=== PATIENT | female | born 1950 | race Caucasian/White ===

== ENCOUNTER 2020-05-21 11:08 | Emergency (ER) | payer OTHER, SELFPAY ==
--- NOTE | 2020-05-21 11:17 | XRR_ITS ---
PROCEDURE INFORMATION: Exam: XR Left Foot Complete Exam date and time: 05/21/2020 11:53 AM Age: 69 years old Clinical indication: Pain and injury or trauma; Fall; Initial encounter; Blunt trauma; Foot; Left; Injury date: 05/20/20; Injury details: Fell off window ledge; Additional info: Pain. Lateral left foot pain TECHNIQUE: Imaging protocol: XR Left foot. Views: 3 or more views. COMPARISON: No relevant prior studies available. FINDINGS: Bones/joints: Hindfoot-midfoot and midfoot-forefoot articulations normal. Metatarsals and phalanges without an acute process. Subtalar and tibiotalar joint normal. Mild degenerative changes at the first metatarsal phalangeal joint. Mild soft tissue swelling about the joint space medially. Soft tissues: See Bones/joints finding. XR/XR foot LT min 3V* [id number] IMPRESSION: No visualized fracture
[2020-05-21 11:39] VITALS: BP 115/73; PULSE 70; RESP 18; TEMP 36.7; O2SAT 100; BMI 19.9
--- NOTE | 2020-05-21 11:54 | W.ED.FALL ---
HPI - Fall General: Chief Complaint: Fall Stated Complaint: left foot pain Time Seen by Provider: 05/21/20 11:37 History of Present Illness: HPI Narrative: States she fell off a ledge or tingling on her left foot and has pain now to the left forefoot that is hard to bear weight on it. complaint: fall Onset (ago): day(s) Fall from: from height (distance) (2 foot) Fall witnessed: no Place fall occurred: home Loss of consciousness: None Symptoms prior to fall: none Context: tripped/slipped Severity: mild Severity scale (1-10): 2 Associated symptoms-after fall: Reports no associated symptoms; Denies abdominal pain, chest pain or headache(s) Review of Systems Const: Denies: fever(s), chills or body aches Eyes: Denies: change in vision or blurry vision ENMT: Denies: throat pain or nasal congestion Card: Denies: chest pain or dyspnea on exertion Resp: Denies: dyspnea, productive cough or non-productive cough GI: Denies: abdominal pain, nausea or vomiting Musc: Reports: extremity pain (Left forefoot) Skin/Breast: Denies: rash Neuro: Denies: headache(s) Psych: Denies: anxiety or depression Contreras/Lymph: Denies: easy bruising Physical Exam Const: COMMON NORMALS: no acute distress Extremity: LEFT LOWER EXTREMITY: Yes foot & digits (Left foot is tender does have some bruising no swelling.) Course Vital Signs: Vital signs: Vital Signs Temperature 98.1 F 05/21/20 11:39 Pulse Rate 70 05/21/20 11:39 Respiratory Rate 18 05/21/20 11:39 Blood Pressure 115/73 05/21/20 11:39 Pulse Oximetry 100 05/21/20 11:39 Discharge Plan Discharge Patient Disposition: Home Clinical Impression: Sprain of foot, left Qualifiers: Encounter type: initial encounter Qualified Code(s): S93.602A - Unspecified sprain of left foot, initial encounter Condition: Stable Discharge Orders: Discharge Order (Routine); Ordered 05/21/20 Ordered By: Salomon Birch Discharge Diet: Usual diet Discharge Activity: Increase activity as tolerated Patient Instructions: Foot Sprain (ED) Activity Restrictions/Additional Instructions: Ice to the area. Can take Tylenol or ibuprofen for pain. Try to do much activity as possible if no significant provement follow-up your family medical provider. Coding Level of Care Code ED Sheet [facility] for Chg Fwd Exam Expanded Problem Focused
[2020-05-21 12:38] VITALS: BP 115/73; PULSE 87; RESP 18; O2SAT 98
== END 2020-05-21 12:39 | disposition home or self-care (01) ==
LOC: ER 12:52
PROVIDERS: Emergency Provider Nurse Practitioner Family
DX: S93.602A Unspecified sprain of left foot, initial encounter (principal); W17.89XA Other fall from one level to another, initial encounter
CPT/HCPCS: 12345; 73630; 99281; 99282

== ENCOUNTER → 2020-06-12 11:47 | Outpatient (BNVA) | payer OTHER, SELFPAY | PROVIDERS: Visit Provider Emergency Medicine | DX: Z11.59 Encounter for screening for other viral diseases (principal) | CPT/HCPCS: 87635 ==

== ENCOUNTER 2022-11-16 08:59 | Outpatient (CLI) | payer OTHER, SELFPAY ==
--- NOTE | 2022-11-16 10:00 | USCV_ITS ---
DevorahEusebia aguilar Age: 72 Gender: F : 1950 Exam Date: 11/16/2022 09:34 Ordering Phys: Kar Piper M.D ([email or web address]) Technologist: Cherry Mays Exam Location: [facility] Indication: SOB Chest Pain BP: 140 / 80 HR: 68 Rhythm: Sinus Technical Quality: Adequate MEASUREMENTS (Male / Female) Normal Values 2D ECHO LV Diastolic Diameter PLAX 3.4 cm 4.2 - 5.9 / 3.9 - 5.3 cm LV Systolic Diameter PLAX 1.8 cm LV Chamber Size 3.0 cm IVS Diastolic Thickness 0.8 cm 0.6 - 1.0 / 0.6 - 0.9 cm IVS Systolic Thickness 1.1 cm LVPW Diastolic Thickness 0.8 cm 0.6 - 1.0 / 0.6 - 0.9 cm LVPW Systolic Thickness 1.5 cm RV Chamber Size 2.0 cm LVOT Diameter 2.0 cm LV Ejection Fraction 2D Teich 80.2 % LV Ejection Fraction MOD 2C 73.0 % LV Ejection Fraction 2C AL 76.6 % LA Diameter 2.7 cm LA Width 2.7 cm LA Height 3.3 cm RA Width 2.4 cm RA Height 3.4 cm Aorta at Sinotubular Diameter 2.3 cm IVC Diameter 1.6 cm M-MODE Aortic Annulus Diameter 2.4 cm LA Ao Ratio MM 1.4 MV E Point Septal Separation 0.6 cm DOPPLER AV Peak Velocity 133.0 cm/s LVOT Peak Velocity 103.0 cm/s AV Area Cont Eq vti 2.0 cm squared AV Area Cont Eq pk 2.5 cm squared MV Peak Velocity 141.0 cm/s MV Area PHT 3.9 cm squared Mitral E to A Ratio 0.7 MV E' Velocity 48.0 cm/s Mitral E to MV E' Ratio 7.5 Mitral E to LV E' Lateral Ratio 6.9 Mitral E to LV E' Septal Ratio 8.4 TR Peak Velocity 132.1 cm/s TR Peak Gradient 7.0 mmHg TR Mean Velocity 97.2 cm/s TR Mean Gradient 4.3 mmHg TR Velocity Time Integral 34.4 cm TV Peak E Velocity 61.0 cm/s Right Atrial Pressure 3.0 mmHg Pulmonary Artery Systolic Pressu 10.0 mmHg RV Acceleration Time 0.2 s RV Ejection Time 0.4 s RV AcT/ET 0.5 FINDINGS Left Ventricle Normal left ventricular size, systolic function and wall thickness, with no regional wall motion abnormalities. Left ventricular ejection fraction is estimated at 60 %. Grade I/IV diastolic dysfunction (abnormal relaxation filling pattern), normal to mildly elevated filling pressures. Right Ventricle The right ventricle is normal in size and function. Right Atrium The right atrium is normal in size. Left Atrium The left atrium is normal in size. Mitral Valve Structurally normal mitral valve without significant stenosis or prolapse. There is no mitral regurgitation. Aortic Valve Structurally normal aortic valve without significant sclerosis or stenosis. There is no aortic regurgitation. Tricuspid Valve Structurally normal tricuspid valve without significant stenosis or regurgitation. Pulmonary artery systolic pressure is normal. Pulmonic Valve Structurally normal pulmonic valve without significant stenosis. There is no pulmonic regurgitation. Pericardium Normal pericardium without effusion. Aorta Normal ascending aorta dimension. IVC The inferior vena cava appears normal. CONCLUSIONS 1-Normal left ventricular size, systolic function and wall thickness, with no regional wall motion abnormalities. Left ventricular ejection fraction is estimated at 60 %. Grade I/IV diastolic dysfunction (abnormal relaxation filling pattern), normal to mildly elevated filling pressures. 2-There is no pericardial effusion. 3-No significant valve abnormalities. 4-Right atrial pressure is around 5 mm of mercury. Ruby Katz MD (Electronically Signed) Final Date: 17 November 2022 23:58 S
== END 2022-11-16 09:00 | disposition home or self-care (01) ==
LOC: RAD 09:03
PROVIDERS: PCP Nurse Practitioner Family; Visit Provider Internal Medicine
DX: R06.02 Shortness of breath (principal); R07.9 Chest pain, unspecified
CPT/HCPCS: 93306

== ENCOUNTER 2022-11-20 08:55 | Outpatient (CLI) | payer MEDICARE, SELFPAY ==
[2022-11-20 09:16] VITALS: BMI 21.0
--- NOTE | 2022-11-20 09:26 | ECG_ITS ---
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 Interpretive Statements NAME OF STUDY: LEXISCAN SESTAMIBI STRESS TEST INDICATION: [Shortness of Breath, cp, ] Procedure: At the baseline, the blood pressure was 141/68 mmHg with a heart rate of 65 bpm. The electrocardiogram showed normal sinus rhythm, normal axis with normal ST and T's. The Lexiscan was infused over a period of 20 seconds. A total of 0.4 mg of Lexiscan was infused. The stress phase was continued for a total of 5 minutes. Heart rate was at the end of stress phase was 86 bpm and a blood pressure of 127/61 mmHg. The EKG at the peak infusion revealed normal sinus rhythm with no significant ST-T wave changes. Sestamibi was injected 20 seconds after the Lexiscan infusion. Blood pressure at the end of recovery phase was 124/64 mmHg with a heart rate of 83 bpm. Conclusion: 1. Normal EKG response to Lexiscan infusion 2. No Lexiscan induced chest pain or cardiac arrhythmia. 3. Normal blood pressure and heart rate response. 4. Sestamibi/sestamibi perfusion scan pending; see separate report. Electronically Signed On 12-07-2022 12:03:34 CDT by Kar Piper M.D. [email or web address]
--- NOTE | 2022-11-20 09:27 | NMCV_ITS ---
NM lourdes perf SPECT r/s* [id number] Eusebia Fairchild Age: 72 Gender: F : 1950 Exam Date: 11/20/2022 10:28 Ordering Phys: Kar Piper M.D ([email or web address]) Technologist: VEDA Moody Exam Location: [facility] Indications: SHORTNESS OF BREATH; CHEST PAIN STRESS TEST [facility] IMAGE PROTOCOL Rest/Stress 1 Lexiscan Day Radiopharmaceutical Dose (mCi) Administration Site Administered by Rest: Tc-99m 10.7 IV VEDA Ibrahim Sestamibi Stress:Tc-99m 32.7 IV VEDA Ibrahim Sestamibi Rest: 20-Nov-2022 60 Discovery 630 Stress: 20-Nov-2022 30 Discovery 630 0.4mg Lexiscan. Images obtained in supine and prone position. SPECT RESULTS Technical Quality: Excellent Raw Data Analysis: Normal, Breast attenuation Image Corrections: No attenuation or motion correction applied Summed Stress Score: 0 Summed Rest Score: 0 Summed Difference Score: 0 PERFUSION FINDINGS SPECT images demonstrate homogeneous tracer distribution throughout the myocardium. FUNCTIONAL RESULTS (calculated via Gated SPECT) Stress Image LV EF (%): 84 Stress EDV (mL):55 TID: 1.5 Stress ESV (mL):9 FUNCTIONAL FINDINGS: There is normal left ventricular systolic function. TID ratio is elevated IMPRESSIONS 1. Normal myocardial perfusion imaging with no evidence of ischemia 2. LV systolic function is normal 3. TID ratio is elevated. Likely secondary to subendocardial ischemia. Kar Piper MD (Electronically Signed) Final Date: 20 November 2022 12:49 S
[2022-11-20] MEDS: regadenoson 0.4 Mg/5 ml Syringe IVP (11:07)
[2022-11-20 11:23] VITALS: BP 124/64; PULSE 83
== END 2022-11-20 08:56 | disposition home or self-care (01) ==
PROVIDERS: PCP Nurse Practitioner Family; Visit Provider Internal Medicine
DX: R06.02 Shortness of breath (principal); R07.9 Chest pain, unspecified
CPT/HCPCS: 36415; 78452; 93017; 96374; A9500; J2785

== ENCOUNTER 2023-01-22 14:09 | Outpatient (CLI) | payer MEDICARE, SELFPAY ==
--- NOTE | 2023-01-22 14:30 | MR_ITS ---
WS: [id number] MRI BRAIN WITH AND WITHOUT CONTRAST HISTORY: R51.9 - Headache, unspecified COMPARISON: None available. TECHNIQUE: Multiplanar imaging performed through the brain with MultiHance 12 ml's IV. No acute infarcts are seen. Boyd-white matter differentiation is well preserved. No significant small vessel ischemic disease. No prior infarct. Mild atrophy. No susceptibility artifacts or prior lacunar infarcts. Ventricles and extra-axial spaces are normal. Clivus and pituitary gland are normal. Visualized posterior fossa and brainstem are also normal. Postcontrast images are negative for masses or vascular malformations. Dural venous sinuses are normal. Paranasal sinuses: Well aerated with no significant disease. Mastoid air cells: Normal. Calvarium and scalp: Normal. MR/MR head wo/w con [id number] IMPRESSION: 1. No acute infarct or hemorrhage. 2. No enhancing mass. 3. Very mild cerebral atrophy. No prior infarcts or significant small vessel i schemic disease.
[2023-01-22] MEDS: gadobenate dimeglumine 20 mL vial IV (15:06)
== END 2023-01-22 14:10 | disposition home or self-care (01) ==
LOC: RAD 14:14
PROVIDERS: PCP Nurse Practitioner Family; Visit Provider Psychiatry & Neurology Neurology
DX: G43.119 Migraine with aura, intractable, without status migrainosus (principal); R55 Syncope and collapse
CPT/HCPCS: 70553; 95812; 95813; 99203; A9577

== ENCOUNTER → 2023-04-25 13:10 | Outpatient (BNVA) | payer MEDICARE, SELFPAY | PROVIDERS: PCP Nurse Practitioner Family; Visit Provider Psychiatry & Neurology Neurology | DX: G43.109 Migraine with aura, not intractable, without status migrainosus (principal) | CPT/HCPCS: 99212 ==

== ENCOUNTER → 2023-08-10 11:13 | Outpatient (BNVA) | payer MEDICARE, SELFPAY | PROVIDERS: PCP Nurse Practitioner Family; Visit Provider Nurse Practitioner Family | DX: R55 Syncope and collapse (principal) | CPT/HCPCS: 99214 ==

== ENCOUNTER → 2023-10-18 16:08 | Outpatient (BNVA) | payer MEDICARE, SELFPAY | PROVIDERS: PCP Nurse Practitioner Family; Visit Provider Internal Medicine | DX: R60.9 Edema, unspecified (principal); R07.9 Chest pain, unspecified; R06.02 Shortness of breath; E78.5 Hyperlipidemia, unspecified | CPT/HCPCS: 99214 ==

== ENCOUNTER → 2023-10-22 15:33 | Outpatient (BNVA) | payer MEDICARE, SELFPAY | PROVIDERS: PCP Nurse Practitioner Family; Visit Provider Psychiatry & Neurology Neurology | DX: G43.111 Migraine with aura, intractable, with status migrainosus (principal); R55 Syncope and collapse | CPT/HCPCS: 99212 ==

== ENCOUNTER 2023-10-26 11:08 | Outpatient (CLI) | payer MEDICARE, SELFPAY ==
--- NOTE | 2023-10-26 11:15 | USCV_ITS ---
Eusebia Fairchild Age: 73 Gender: F : 1950 Exam Date: 10/26/2023 11:36 Ordering Phys: Kar Piper M.D ([email or web address]) Technologist: CT Exam Location[place] [facility] [place] Indication: BP: 140 / 99 HR: Rhythm: Sinus Technical Quality: Fair MEASUREMENTS (Male / Female) Normal Values 2D ECHO LVOT Diameter 2.1 cm LV Ejection Fraction MOD 2C 80.8 % LV Ejection Fraction 2C AL 0.0 % LA Diameter 3.3 cm IVC Diameter 1.1 cm M-MODE LA Ao Ratio MM 1.4 AV Cusp Separation MM 1.7 cm DOPPLER AV Peak Velocity 125.0 cm/s LVOT Peak Velocity 103.0 cm/s AV Area Cont Eq vti 2.9 cm squared AV Area Cont Eq pk 2.7 cm squared MV Peak Velocity 101.0 cm/s MV Area PHT 2.7 cm squared Mitral E to A Ratio 1.0 TR Peak Velocity 120.0 cm/s TR Peak Gradient 5.8 mmHg TV Peak E Velocity 79.0 cm/s Right Atrial Pressure 3.0 mmHg Pulmonary Artery Systolic Pressu 8.8 mmHg PV Peak Velocity 93.2 cm/s FINDINGS Left Ventricle Left ventricle is normal in size. LV systolic function is normal with EF of 60 to 65%. No regional wall motion abnormalities are seen. Grade 1 diastolic dysfunction Right Ventricle Normal in size and function Right Atrium Normal in size Left Atrium Normal in size Mitral Valve Structurally normal mitral valve. Trace mitral regurgitation Aortic Valve Structurally normal aortic valve. No significant stenosis or regurgitation. Tricuspid Valve Mild tricuspid regurgitation. Insufficient TR jet to calculate RVSP. Pulmonic Valve Not well visualized Pericardium Small sized pericardial effusion. Aorta Normal in size IVC Appears to be normal CONCLUSIONS LV systolic function is normal with EF of 60 to 65%. Grade 1 diastolic dysfunction Trace mitral regurgitation Mild tricuspid regurgitation Small sized pericardial effusion Compared to prior echocardiogram from 2022, small sized pericardial effusion Kar Piper MD (Electronically Signed) Final Date: 27 October 2023 14:20 S
== END 2023-10-26 11:09 | disposition home or self-care (01) ==
LOC: RAD 11:08
PROVIDERS: PCP Nurse Practitioner Family; Visit Provider Internal Medicine
DX: R07.9 Chest pain, unspecified (principal); R06.02 Shortness of breath
CPT/HCPCS: 93306

== ENCOUNTER 2023-11-16 12:19 | Outpatient (CLI) | payer MEDICARE, SELFPAY ==
--- NOTE | 2023-11-16 12:15 | MR_ITS ---
WS: [id number] MRA HEAD TECHNIQUE: Axial 3-D TOF images obtained with axial images and axial, sagittal, and coronal 2-D refor matted images. CLINICAL INFORMATION: I72.9 - Aneurysm of unspecified site COMPARISON: MRI 01/22/2023 FINDINGS: Dominant distal LEFT vertebral artery. Smaller but patent distal RIGHT vertebral artery. Basilar wilbert ry is patent. 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 Normal vascularity to the ANTIQUE JEWELRY REPAIRER territory bilaterally. Both ICAs are patent at the skull base. Small RIGHT A1 segment. Normal vascularity to the CHRISTIANO territo ry. Normal vascularity to the MCA territory bilaterally. No evidence of proximal flow-limiting stenos is or aneurysm. Some images are graded by motion. IMPRESSION: 1. No evidence of proximal flow-limiting stenosis or aneurysm. 2. 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 3. Otherwise unremarkable intracranial MRA.
== END 2023-11-16 12:20 | disposition home or self-care (01) ==
LOC: RAD 12:19
PROVIDERS: PCP Nurse Practitioner Family; Visit Provider Psychiatry & Neurology Neurology
DX: I72.9 Aneurysm of unspecified site (principal); Q28.1 Other malformations of precerebral vessels
CPT/HCPCS: 70544

== ENCOUNTER → 2023-12-25 07:18 | Outpatient (BNVA) | payer MEDICARE, SELFPAY | PROVIDERS: PCP Nurse Practitioner Family; Visit Provider Psychiatry & Neurology Neurology | DX: R55 Syncope and collapse (principal) | CPT/HCPCS: 95813; 95819 ==

== ENCOUNTER → 2024-01-09 10:06 | Outpatient (BNVA) | payer MEDICARE, SELFPAY | PROVIDERS: PCP Nurse Practitioner Family; Visit Provider Internal Medicine Cardiovascular Disease | DX: R07.9 Chest pain, unspecified (principal); I20.1 Angina pectoris with documented spasm; E78.2 Mixed hyperlipidemia; R55 Syncope and collapse; Z87.891 Personal history of nicotine dependence | CPT/HCPCS: 99215 ==

== ENCOUNTER → 2024-02-06 14:57 | Outpatient (BNVA) | payer MEDICARE, SELFPAY | PROVIDERS: PCP Nurse Practitioner Family; Visit Provider Psychiatry & Neurology Neurology | DX: G43.111 Migraine with aura, intractable, with status migrainosus (principal); R55 Syncope and collapse | CPT/HCPCS: 99212 ==

== ENCOUNTER 2024-02-14 10:46 | Oncology outpatient (recurring) (ONCR) | payer MEDICARE, SELFPAY ==
[2024-02-14 10:55] VITALS: BP 110/71; PULSE 90; RESP 18; TEMP 36.8; O2SAT 98
[2024-02-14] MEDS: eptinezumab-jjmr 100 MG in sodium chloride 0.9% (100 ml) 100 ML 202 MG IV (11:18)
[2024-02-14] MEDS: sodium chloride 0.9% 250 ML 75 ML IV (11:18)
[2024-02-14 12:05] VITALS: BP 114/69; PULSE 82; RESP 18; TEMP 36.6; O2SAT 96
== END 2024-03-02 23:59 | disposition home or self-care (01) ==
PROVIDERS: PCP Nurse Practitioner Family; Visit Provider Internal Medicine Medical Oncology
DX: G43.109 Migraine with aura, not intractable, without status migrainosus (principal)
CPT/HCPCS: 96413; A4222; J3032; J7050

== ENCOUNTER 2024-03-03 13:08 | Outpatient (CLI) | payer MEDICARE, SELFPAY ==
--- NOTE | 2024-03-03 13:16 | XR_ITS ---
WS: [id number] XR lumbar spine f/e only [id number] REASON FOR EXAM: VERTEBROGENIC LOW BACK PAIN FINDINGS: Mild biconcave compression deformities L1 and L2. Mild disc space narrowing with mild subchondral sclerosis and osteophytosis L1-2 L4. There is also mi ld to moderate narrowing of the L5-S1 disc space. 2 to 3 mm of anterolisthesis of L3 in relation to L4. This listhesis reduces with flexion and is unch anged in extension. XR/XR lumbar spine f/e only [id number] IMPRESSION: Mild to moderate degenerative spondylosis as above.
== END 2024-03-03 13:09 | disposition home or self-care (01) ==
PROVIDERS: PCP Nurse Practitioner Family; Visit Provider Nurse Practitioner
DX: M48.061 Spinal stenosis, lumbar region without neurogenic claudication (principal); M48.08 Spinal stenosis, sacral and sacrococcygeal region; M43.16 Spondylolisthesis, lumbar region
CPT/HCPCS: 72120

== ENCOUNTER → 2024-03-26 14:53 | Outpatient (BNVA) | payer MEDICARE, SELFPAY | PROVIDERS: PCP Nurse Practitioner Family; Visit Provider Psychiatry & Neurology Neurology | DX: G43.111 Migraine with aura, intractable, with status migrainosus (principal); R55 Syncope and collapse | CPT/HCPCS: 99212 ==

== ENCOUNTER 2024-04-17 10:53 | Outpatient (CLI) | payer MEDICARE, SELFPAY ==
--- NOTE | 2024-04-17 10:57 | MR_ITS ---
WS: [id number] MRI LUMBAR SPINE NONCONTRAST HISTORY: VERTEBROGENIC LOW BACK PAIN COMPARISON: None available. TECHNIQUE: Sagittal and axial multisequence imaging is submitted. C4 anterolisthesis by 3 mm. Mild compression deformities at T4, T5 and T12. Slight retrolisthesis of L2 and L3 by 2 mm. Disc spaces are all narrowed and desiccated. No lumbar spine fracture. Mild osteophytic ridging around the vertebral bodies. Conus terminates normally at L1-2 disc level. L1-L2: Mild annular disc bulging with osteophytic ridging and facet disease. Mild central and bilater al subarticular recess encroachment. Mild RIGHT foraminal stenosis. Mild encroachment upon the trisha sing RIGHT L5 nerve root. L2-L3: Diffuse annular disc bulging with osteophytic ridging. Ligamentum flavum and facet arthritis. Moderate central with bilateral subarticular recess and foraminal stenosis. There is an additional LE FT foraminal disc protrusion. L3-L4: Diffuse annular disc bulging with osteophytic ridging. Bilateral foraminal disc protrusions. M oderate to severe central, bilateral subarticular recess and foraminal stenosis. There is significant encroachment upon the L3 and L4 nerve roots. L4-L5: Diffuse annular disc bulging with facet and ligamentum flavum hypertrophy. Disc encroachment u dolores the subarticular recesses. Mild central and bilateral foraminal stenosis and mild subarticular re cess stenosis. L5-S1: Diffuse annular disc bulging with facet and ligamentum flavum hypertrophy. LEFT foraminal disc protrusion contacts the exiting LEFT L5 nerve root. Mild encroachment upon the S1 nerve roots. Paravertebral soft tissues are negative. MR/MR lumbar spine wo con* [id number] IMPRESSION: 1. L2-3: Moderate central with bilateral subarticular recess and foraminal belkis nosis. Additional LEFT foraminal disc protrusion contributing to the stenosis. 2. L3-4: Moderate to severe central, bilateral subarticular recess and foramin al stenosis. 3. L4-5: Mild central, bilateral subarticular recess and foraminal stenosis. 4. L5-S1: LEFT foraminal disc protrusion contacting the exiting LEFT L5 nerve root. Additional mild encroachment upon the S1 nerve roots. 5. L1-2: Mild central and bilateral subarticular recess stenosis. Mild RIGHT f oraminal stenosis with disc encroachment upon the traversing RIGHT L5 nerve avery t.
== END 2024-04-17 10:54 | disposition home or self-care (01) ==
LOC: RAD 10:53
PROVIDERS: PCP Nurse Practitioner Family; Visit Provider Anesthesiology Pain Medicine
DX: M51.26 Other intervertebral disc displacement, lumbar region (principal); M25.78 Osteophyte, vertebrae
CPT/HCPCS: 72148

== ENCOUNTER 2024-05-08 11:07 | Oncology outpatient (recurring) (ONCR) | payer MEDICARE, SELFPAY ==
[2024-05-08] MEDS: sodium chloride 0.9% 250 ML 75 ML IV (11:41)
[2024-05-08 11:45] VITALS: BP 122/76; PULSE 69; RESP 17; TEMP 37; O2SAT 98
[2024-05-08] MEDS: eptinezumab-jjmr 300 MG in sodium chloride 0.9% (100 ml) 100 ML 206 MG IV (12:20)
[2024-05-08 13:40] VITALS: BP 112/78; PULSE 87; RESP 18; TEMP 36.6; O2SAT 98
== END 2024-06-02 23:59 | disposition home or self-care (01) ==
PROVIDERS: PCP Nurse Practitioner Family; Visit Provider Internal Medicine Medical Oncology
DX: G43.109 Migraine with aura, not intractable, without status migrainosus (principal); Z79.899 Other long term (current) drug therapy
CPT/HCPCS: 96365; A4222; J3032; J7050

== ENCOUNTER 2024-05-28 15:52 | Outpatient (CLI) | payer MEDICARE, SELFPAY | END 2024-05-28 15:53 | disposition home or self-care (01) | LOC: SLEEP 15:53 | PROVIDERS: PCP Nurse Practitioner Family; Visit Provider Anesthesiology Pain Medicine | DX: G47.33 Obstructive sleep apnea (adult) (pediatric) (principal) | CPT/HCPCS: G0399 ==

== ENCOUNTER 2024-08-07 10:30 | Oncology outpatient (recurring) (ONCR) | payer MEDICARE, SELFPAY ==
[2024-08-07 11:06] VITALS: BP 133/73; PULSE 64; RESP 16; TEMP 36.6; O2SAT 97
[2024-08-07] MEDS: eptinezumab-jjmr 300 MG in sodium chloride 0.9% (100 ml) 100 ML 206 MG IV (11:28)
[2024-08-07 16:42] VITALS: PULSE 62; RESP 16; TEMP 36.4; O2SAT 97
== END 2024-09-02 23:59 | disposition home or self-care (01) ==
PROVIDERS: PCP Nurse Practitioner Family; Visit Provider Internal Medicine Medical Oncology
DX: G43.109 Migraine with aura, not intractable, without status migrainosus (principal); Z79.899 Other long term (current) drug therapy; I20.1 Angina pectoris with documented spasm; R07.9 Chest pain, unspecified; R00.2 Palpitations; R55 Syncope and collapse; I10 Essential (primary) hypertension; Z53.9 Procedure and treatment not carried out, unspecified reason
CPT/HCPCS: 96413; 99214; A4222; J3032

== ENCOUNTER 2024-09-23 16:00 | Outpatient (CLI) | payer MEDICARE, SELFPAY ==
--- NOTE | 2024-09-23 16:05 | XRR_ITS ---
PROCEDURE INFORMATION: Exam: XR Chest Exam date and time: 09/23/2024 4:20 PM Age: 74 years old Clinical indication: Patient HX: Chest wall pain that radiates through the chest. Been steady since having covid last year. TECHNIQUE: Imaging protocol: Radiologic exam of the chest. Views: 2 views. COMPARISON: No relevant prior studies available. FINDINGS: Tubes, catheters and devices: Implanted cardiac monitoring device in the upper left chest. Lungs: Lungs are clear bilaterally. Pleural spaces: No pleural effusion. No pneumothorax. Heart/Mediastinum: Cardiac silhouette and mediastinal contours are unremarkable. Vasculature: Vascular calcifications in the aorta. Bones/joints: Unremarkable for age. XR/XR chest 2V* [id number] IMPRESSION: 1. No acute cardiopulmonary process. 2. Incidental/nonacute findings are listed in the report.
== END 2024-09-23 16:01 | disposition home or self-care (01) ==
LOC: RAD 16:02
PROVIDERS: PCP Nurse Practitioner Family; Visit Provider Nurse Practitioner Family
DX: R07.89 Other chest pain (principal); Z96.89 Presence of other specified functional implants; I70.0 Atherosclerosis of aorta
CPT/HCPCS: 71046

== ENCOUNTER 2024-11-06 10:24 | Oncology outpatient (recurring) (ONCR) | payer MEDICARE, SELFPAY ==
[2024-11-06] MEDS: eptinezumab-jjmr 300 MG in sodium chloride 0.9% (100 ml) 100 ML 206 MG IV (11:32)
[2024-11-06 12:10] VITALS: BP 107/87; PULSE 64; RESP 17; TEMP 36.4; O2SAT 98
== END 2024-12-01 23:59 | disposition home or self-care (01) ==
PROVIDERS: PCP Nurse Practitioner Family; Visit Provider Internal Medicine Medical Oncology
DX: G43.109 Migraine with aura, not intractable, without status migrainosus (principal)
CPT/HCPCS: 96413; A4222; J3032

== ENCOUNTER → 2025-01-09 08:56 | Outpatient (BNVA) | payer MEDICARE, SELFPAY | PROVIDERS: PCP Nurse Practitioner Family; Visit Provider Specialist | DX: G43.111 Migraine with aura, intractable, with status migrainosus (principal); G43.711 Chronic migraine without aura, intractable, with status migrainosus | CPT/HCPCS: 64615; J9999 ==

== ENCOUNTER → 2025-02-10 15:28 | Outpatient (BNVA) | payer MEDICARE, SELFPAY | PROVIDERS: PCP Nurse Practitioner Family; Visit Provider Internal Medicine Cardiovascular Disease | DX: R07.9 Chest pain, unspecified (principal); E78.2 Mixed hyperlipidemia; R55 Syncope and collapse; Z87.891 Personal history of nicotine dependence | CPT/HCPCS: 93005; 99214 ==

== ENCOUNTER → 2025-04-23 14:50 | Outpatient (BNVA) | payer MEDICARE, SELFPAY | PROVIDERS: PCP Nurse Practitioner Family; Referring Provider Psychiatry & Neurology Neurology; Visit Provider Specialist | DX: G43.111 Migraine with aura, intractable, with status migrainosus (principal) | CPT/HCPCS: 64615; J9999 ==

== ENCOUNTER → 2025-07-23 14:49 | Outpatient (BNVA) | payer MEDICARE, SELFPAY | PROVIDERS: PCP Nurse Practitioner Family; Referring Provider Psychiatry & Neurology Neurology; Visit Provider Specialist | DX: G43.111 Migraine with aura, intractable, with status migrainosus (principal) | CPT/HCPCS: 64615; J9999 ==